=== PATIENT | male | born 1945 | race Caucasian/White ===

== ENCOUNTER 2017-05-08 10:47 | Emergency (ER) | payer OTHER ==
[2017-05-08 10:53] VITALS: BMI 21.4
--- NOTE | 2017-05-08 11:00 | PDOC ---
History of Present Illness - General Chief Complaint: Pain Stated Complaint: ABD PAIN Time Seen by Provider: 05/08/17 10:53 History Source: Patient - History of Present Illness Timing/Duration: reports: getting worse Quality: reports: moderate Abdominal Pain Onset Location: reports: LLQ Pain Radiation: reports: no radiation Past History - Past Medical History Allergies/Adverse Reactions: Allergies Allergy/AdvReac Type Severity Reaction Status Date / Time No Known Allergies Allergy Verified 05/08/17 10:51 Home Medications: Ambulatory Orders Aspirin [ASA -] 81 mg PO DAILY 01/15/16 Calcium Carbonate [Tums] 200 mg PO DAILY 01/15/16 Multivitamin [Zoo Chews] 1 each PO DAILY 01/15/16 [place]-3S/Dha/Epa/Fish Oil [Fish Oil 1,200 mg Softgel] 1 each PO DAILY 01/15/16 Ciprofloxacin HCl [Cipro] 500 mg PO BID #14 tablet 05/08/17 Metronidazole 500 mg PO Q8H #21 tablet 05/08/17 Tramadol HCl 50 mg PO Q6H #15 tablet MDD 200mg 05/08/17 Anemia: No Asthma: No Cancer: Yes (Prostate) Cardiac Disorders: No CVA: No COPD: No CHF: No Dementia: No Diabetes: No GI Disorders: Yes (REFLUX) Disorders: No HTN: No Hypercholesterolemia: No Liver Disease: No Seizures: No Thyroid Disease: No - Surgical History Abdominal Surgery: No Appendectomy: No Cardiac Surgery: No Cholecystectomy: Yes Lung Surgery: No Neurologic Surgery: No Orthopedic Surgery: No - Psycho/Social/Smoking Cessation Hx Anxiety: No Suicidal Ideation: No Smoking Status: No Smoking History: Never smoked Have you smoked in the past 12 months: No Number of Cigarettes Smoked Daily: 0 Hx Alcohol Use: No Drug/Substance Use Hx: No Substance Use Type: None Hx Substance Use Treatment: No Review of Systems - Review of Systems Constitutional: No: Chills, Fever ABD/GI: Yes: Abdominal cramping. No: Diarrhea, Nausea, Vomiting : No: Dysuria *Physical Exam - Vital Signs Last Vital Signs Temp Pulse Resp BP Pulse Ox 97.9 F 89 18 127/74 98 05/08/17 10:49 05/08/17 10:49 05/08/17 10:49 05/08/17 10:49 05/08/17 10:49 - Physical Exam General Appearance: Yes: Appropriately Dressed, Apparent Distress HEENT: positive: Normal Voice Neck: positive: Supple Respiratory/Chest: negative: Respiratory Distress Gastrointestinal/Abdominal: positive: Normal Bowel Sounds, Tender (to LLQ), Soft. negative: Distended, Guarding Musculoskeletal: negative: CVA Tenderness Integumentary: positive: Dry, Warm Neurologic: positive: Fully Oriented, Alert, Normal Mood/Affect ED Treatment Course - LABORATORY CBC & Chemistry Diagram: 05/08/17 11:20 05/08/17 11:20 Medical Decision Making - Medical Decision Making 71 yo M, GERD, s/p antoine, prostate ca remotely s/o chemo, here w/ LLQ pain that started 1 week ago. States pain resolved after first few days but reoccurred 3 days ago and now worse. Also reported constipation that has since resolved with one dose of milk of magnesia. Patient denies nausea, vomiting, fever, chills, bright red blood per rectum or melena. No history of similar pain in the past. Does not feel like his GERD as per patient See exam R/o diverticulitis -pain control -labs -CT 05/08/17 14:15 CT w/ diverticulitis to mid and distal descending colon w/ prominent diverticulum vs extraluminal air pocket and cannot r/o small phlegmon, however no obvious collection/abscess. Wbc of 15. Will admit for IV abx 05/08/17 14:42 05/08/17 15:36 05/08/17 16:39 Patient seen by hospitalist team, who states patient well enough to go home. Patient asymptomatic at this time with no nausea, vomiting or fever and able to tolerate po. Will dc with trial of abx po antibiotics with strict return precautions. *DC/Admit/Observation/Transfer Diagnosis at time of Disposition: Diverticulitis Qualifiers: Diverticulitis site: large intestine Diverticulitis bleeding: without bleeding Diverticulitis complication: unspecified complication status Qualified Code(s): K57.32 - Diverticulitis of large intestine without perforation or abscess without bleeding - Discharge Dispostion Disposition: HOME Condition at time of disposition: Improved - Prescriptions Prescriptions: Ciprofloxacin HCl [Cipro] 500 mg PO BID #14 tablet Metronidazole 500 mg PO Q8H #21 tablet Tramadol HCl 50 mg PO Q6H #15 tablet MDD 200mg - Referrals Referrals: Shiraz Blank MD [Staff Physician] - - Patient Instructions Printed Discharge Instructions: Diverticulitis Additional Instructions: You have an infection in your colon called diverticulitis. Please take antibiotics as prescribed and return to ED immediately for worsening of symptoms. Please follow-up with Dr. Lopez in 1 week
[2017-05-08 11:33] LABS: BASOPHIL 0.5 % (0-2.0); EOSINOPHIL 0.7 % (0-4.5); MCH 32.4 pg (25.7-33.7); MCHC 33.9 g/dl (32.0-35.9); MEAN CELL VOLUME 95.5 fl (80-96); MEAN PLT VOLUME 9.1 fl (7.5-11.1); NEUTROPHILS 75.9 % (42.8-82.8); PLATELET COUNT 170 K/MM3 (134-434); RDW 13.4 % (11.9-15.9)
[2017-05-08 11:38] LABS: URINE APPEARANCE CLEAR; URINE BILIRUBIN NEGATIVE (NEGATIVE); URINE BLOOD NEGATIVE (NEGATIVE); URINE COLOR LTYELLOW; URINE GLUCOSE (UA) NEGATIVE (NEGATIVE); URINE KETONE NEGATIVE (NEGATIVE); URINE LEUK ESTERASE NEGATIVE (NEGATIVE); URINE NITRITE NEGATIVE (NEGATIVE); URINE PROTEIN NEGATIVE (NEGATIVE); URINE UROBILINOGEN NEGATIVE mg/dL (0.2-1.0)
[2017-05-08 11:51] LABS: ANION GAP 8 (8-16); BILIRUBIN,TOTAL 1.2 mg/dL (0.2-1.0); CALCIUM 9.6 mg/dL (8.5-10.1); CO2 30 mmol/L (21-32); CREATININE 1.1 mg/dL (0.7-1.3); GLUCOSE,RANDOM 86 mg/dL (74-106); SGOT/AST 19 U/L (15-37); SGPT/ALT 27 U/L (12-78); TOT PROT 7.6 g/dl (6.4-8.2)
[2017-05-08 11:52] LABS: ALK PHOS 108 U/L (45-117)
[2017-05-08] MEDS ORDERED: METRONIDAZOLE 500 MG PREMIXED 100 ML IVPB ONE ×2 (14:15→14:18)
[2017-05-08] MEDS ORDERED: CIPROFLOXACIN 400 MG/D5W 200 ML IVPB ONE (14:15)
--- NOTE | 2017-05-08 16:53 | HOSP ---
Subjective - Review of Symptoms General: No: Chills HEENT: No: Head Aches, Visual Changes Pulmonary: No: Dyspnea, Cough Cardiovascular: No: Chest Pain, Palpitations, Orthopnea Gastrointestinal: Yes: Abdominal Pain (2-3/10 LLQ) Genitourinary: No: Dysuria, Frequency Musculoskeletal: Yes: No Symptoms Physical Examination Vital Signs: Vital Signs Temperature 97.9 F 05/08/17 10:49 Pulse Rate 99 H 05/08/17 14:49 Respiratory Rate 18 05/08/17 10:49 Blood Pressure 121/72 05/08/17 14:49 O2 Sat by Pulse Oximetry (%) 95 05/08/17 14:49 Constitutional: Yes: Well Nourished, No Distress Eyes: Yes: WNL HENT: Yes: WNL Neck: Yes: WNL Cardiovascular: Yes: Regular Rate and Rhythm. No: Gallop, Murmur, Rub Respiratory: Yes: Regular, CTA Bilaterally. No: Accessory Muscle Use Gastrointestinal: Yes: Normal Bowel Sounds, Soft, Tenderness (Left lower quadrant). No: Distention, Hepatomegaly ...Rectal Exam: Yes: Deferred Renal/: No: CVA Tenderness - Left, CVA Tenderness - Right Musculoskeletal: Yes: WNL Edema: No Peripheral Pulses: Left Radial: 2+, Right Radial: 2+, Left Doralis Pedis: 2+, Right Dorsalis Pedis: 2+ Integumentary: Yes: WNL Neurological: Yes: Alert, Oriented, Cran Nerves II-XII Intact ...Motor Strength: WNL Labs: CBC, BMP 05/08/17 11:20 05/08/17 11:20 Hospitalist Encounter Assessment: A: 71 yo man with PMH prostate CA s/p XRT '09 and diverticulitis presents with LLQ pain with CT evidence of acute diverticulitis. No abscess or collection present. Discussion regarding need for PMD f/u for re-evaluation and colonoscopy had. Pt verbalized understanding. P: #Diverticulitis - PO Flagyl and Cipro - d/c home with PMD referral
[2017-05-08 17:06] VITALS: BP 125/80; PULSE 90; TEMP 98
== END 2017-05-08 17:06 | disposition home or self-care (01) ==
LOC: JER 10:47
DX: K57.32 Diverticulitis of large intestine without perforation or abscess without bleeding (principal); Z85.46 Personal history of malignant neoplasm of prostate; K21.9 Gastro-esophageal reflux disease without esophagitis
CPT/HCPCS: 36415; 74177-TC; 80053; 81003; 85025; 96365; 96368; 99283-25; Q9967

== ENCOUNTER 2017-11-13 19:01 | Observation (INO) | payer OTHER ==
--- NOTE | 2017-11-13 19:26 | PDOC ---
Rapid Medical Evaluation Chief Complaint: Chest Pain Time Seen by Provider: 11/13/17 19:22 Medical Evaluation: Allergies Allergy/AdvReac Type Severity Reaction Status Date / Time No Known Allergies Allergy Verified 05/08/17 10:51 11/13/17 19:22 Palpitations on and off s afternoon. Now resolved. Was concerned as they re- occured and spont resolved States has progressive weakness and dizziness. I have performed a brief in-person evaluation of this patient. The patient presents with a chief complaint of: Palpitations on and off s afternoon. Now resolved. Was concerned as they re-occured and spont resolved States has progressive weakness and dizziness. Pertinent physical exam findings: well, non diaphoretic, I have ordered the following: EKG, The patient will proceed to the ED for further evaluation 11/13/17 19:26 11/13/17 19:27
[2017-11-13 19:40] VITALS: BMI 21.4
--- NOTE | 2017-11-13 20:16 | PDOC ---
History of Present Illness - General Chief Complaint: Chest Pain Stated Complaint: PALPITATIONS Time Seen by Provider: 11/13/17 19:22 - History of Present Illness Initial Comments: 11/13/17 20:17 72 yo M with h/o prostate cancer who presents with chest discomfort. Patient states that at 3 pm he experienced vague chest discomfort and jitteriness at rest. States that chest discomfort similar to "drinking too much coffee." Denies chest pressure, jaw pain, radiation to ext, neck pain, sensory disturbances. One cup of coffee this AM. Chest discomfort now resolved after 5 hours. No identifiable triggers or alleviators. Denies N/V, F/C, SOB, Rahman, palpitations, Cough, urinary complaints, abdominal pain, lightheadedness, LOC. Denies h/o CAD/TN, stent placement, or CABG. Tobacco cessation at age 18. Denies alcohol or illicit drug use. States that he has MRI brain scheduled tomorrow indicated for progressive generalized weakness and memory deficits that began this past summer 2016. Daily ASA 162 mg. Denies anticoagulation. Past History - Past Medical History Allergies/Adverse Reactions: Allergies Allergy/AdvReac Type Severity Reaction Status Date / Time No Known Allergies Allergy Verified 11/13/17 19:28 Home Medications: Ambulatory Orders Aspirin [ASA -] 81 mg PO DAILY 01/15/16 Calcium Carbonate [Tums] 200 mg PO DAILY 01/15/16 Multivitamin [Zoo Chews] 1 each PO DAILY 01/15/16 [place]-3S/Dha/Epa/Fish Oil [Fish Oil 1,200 mg Softgel] 1 each PO DAILY 01/15/16 Ciprofloxacin HCl [Cipro] 500 mg PO BID #14 tablet 05/08/17 Metronidazole 500 mg PO Q8H #21 tablet 05/08/17 Tramadol HCl 50 mg PO Q6H #15 tablet MDD 200mg 05/08/17 Anemia: No Asthma: No Cancer: Yes (Prostate) Cardiac Disorders: No CVA: No COPD: No CHF: No Dementia: No Diabetes: No GI Disorders: Yes (REFLUX) Disorders: No HTN: No Hypercholesterolemia: No Liver Disease: No Seizures: No Thyroid Disease: No - Surgical History Abdominal Surgery: No Appendectomy: No Cardiac Surgery: No Cholecystectomy: Yes Lung Surgery: No Neurologic Surgery: No Orthopedic Surgery: No - Suicide/Smoking/Psychosocial Hx Smoking Status: No Smoking History: Unknown if ever smoked Have you smoked in the past 12 months: No Number of Cigarettes Smoked Daily: 0 Hx Alcohol Use: No Drug/Substance Use Hx: No Substance Use Type: None Hx Substance Use Treatment: No Review of Systems - Review of Systems Comments:: 11/13/17 20:16 GENERAL/CONSTITUTIONAL: + Fatigue and Weakness. No fever or chills. HEAD, EYES, EARS, NOSE AND THROAT: No change in vision. No ear pain or discharge. No sore throat.- CARDIOVASCULAR:+ chest discomfort. No shortness of breath RESPIRATORY: No cough, wheezing, or hemoptysis. GASTROINTESTINAL: No nausea, vomiting, diarrhea or constipation. GENITOURINARY: No dysuria, frequency, or change in urination. MUSCULOSKELETAL: No joint or muscle swelling or pain. No neck or back pain. SKIN: No rash NEUROLOGIC: No headache, vertigo, loss of consciousness, or change in strength/ sensation. ENDOCRINE: No increased thirst. No abnormal weight change HEMATOLOGIC/LYMPHATIC: No anemia, easy bleeding, or history of blood clots. ALLERGIC/IMMUNOLOGIC: No hives or skin allergy. *Physical Exam - Vital Signs Last Vital Signs Temp Pulse Resp BP Pulse Ox 98.8 F 93 H 16 128/73 99 11/13/17 19:20 11/13/17 19:20 11/13/17 19:20 11/13/17 19:20 11/13/17 19:20 - Physical Exam Comments: 11/13/17 20:16 GENERAL: Awake, alert, and fully oriented, in no acute distress HEAD: No signs of trauma, normocephalic, atraumatic EYES: PERRLA, EOMI, sclera anicteric, conjunctiva clear ENT: Hearing grossly normal, nares patent, oropharynx clear without exudates. Moist mucosa NECK: Normal ROM, supple, no lymphadenopathy, JVD, or masses LUNGS: No distress, speaks full sentences, clear to auscultation bilaterally HEART: Regular rate and rhythm, normal S1 and S2, no murmurs, rubs or gallops, peripheral pulses normal and equal bilaterally. EXTREMITIES : Normal inspection, Normal range of motion, no edema. No clubbing or cyanosis. NEUROLOGICAL: Cranial nerves II through XII grossly intact. Normal speech, normal gait, no focal sensorimotor deficits SKIN: Warm, Dry, normal turgor, no rashes or lesions noted. 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 complaints or identifiable triggers or alleviators. Denies chest pressure, jaw pain, radiation to ext, neck pain, sensory disturbances, N/V, F/C, SOB, Rahmna, Palpitations, Cough, urinary complaints, abdominal pain, lightheadedness, LOC. Denies h/o CAD/TN, stent placement, or CABG. Tobacco cessation at age 18. Denies alcohol or illicit drug use. MRI brain scheduled tomorrow indicated for progressive generalized weakness and memory deficits that began this past summer 2016. Daily ASA 162 mg. Denies anticoagulation. Physical exam unremarkable and patient hemodynamically stable. Will workup pt. for ACS/TN r/ o. Will also consider hyperthyroidism with pt. constellation of symptoms and mild tachycardia. Absent pulmonary findings or complaints. Low suspicion of PNA. DDx: Anxiety related disorder, GERD, ACS/TN, hypothyroidism ED Course: CBC, CMP, Trop, TSH, Cardiac Profile, UA EKG, CXR 11/13/17 20:50 EKG: NSR with absent PARI/STD, or TWI. Normal interval duration. 11/13/17 23:23 CBC, CMP: Unremarkable Trop: Neg UA: Neg TSH : 0.01 T4, T3 11/13/17 23:47 ED OBS SHORT STAY 11/14/17 03:19 T4- 1.79 Patient stable and ready for discharge. Repeat trop pending. If trop negative. Can discharge with routine f/u. *DC/Admit/Observation/Transfer Diagnosis at time of Disposition: Atypical chest pain - Discharge Dispostion Condition at time of disposition: Stable Admit: No - Referrals - Patient Instructions - Post Discharge Activity - Attestations Physician Attestion: 11/13/17 23:24 I attest to the documentation provided in this note.
--- NOTE | 2017-11-13 20:20 | PDOC ---
Attending Attestation - Resident Resident Name: Davion Sandersonson - ED Attending Attestation I have performed the following: I have examined & evaluated the patient, The case was reviewed & discussed with the resident, I agree w/resident's findings & plan - HPI HPI: 11/13/17 22:27 Pt comes with atypical CP - Physicial Exam PE: 11/13/17 22:27 Agree with resident exam - Medical Decision Making 11/13/17 22:27 EKG: NSR Labs pending Exam normal Vitals normal 11/14/17 06:24 TSH is low and Free T4 is elevated. Pt is hyperthyroid, which is likely the cause of the jiteriness that he is feeling. Pt was admitted to ER Observation short stay and he will be followed by the hospitalists.
[2017-11-13 22:18] LABS: BASO % 0.5 % (0-2.0); EOS % 2.4 % (0-4.5); HEMATOCRIT 38.7 % (35.4-49); HEMOGLOBIN 13.4 GM/dL (11.7-16.9); LYMPH % 36.7 % (8-40); MCH 31.6 pg (25.7-33.7); MCHC 34.6 g/dl (32.0-35.9); MEAN CELL VOLUME 91.3 fl (80-96); MEAN PLT VOLUME 8.7 fl (7.5-11.1); MONO % 10.2 % (3.8-10.2); NEUT % 50.2 % (42.8-82.8); PLATELET COUNT 181 K/MM3 (134-434); RBC 4.24 M/mm3 (4.00-5.60); RDW 13.6 % (11.9-15.9)
[2017-11-13 22:43] LABS: INR 1.05 (0.82-1.09); PROTHROMBIN TIME (PATIENT) 11.9 SEC (9.98-11.88)
[2017-11-13 22:47] LABS: ALBUMIN 3.7 g/dl (3.4-5.0); ANION GAP 5 (8-16); BILIRUBIN,TOTAL 0.4 mg/dL (0.2-1.0); BLOOD UREA NITROGEN 12 mg/dL (7-18); CALCIUM 8.7 mg/dL (8.5-10.1); CHLORIDE 103 mmol/L (98-107); CO2 32 mmol/L (21-32); CREATININE 0.7 mg/dL (0.7-1.3); GLUCOSE,RANDOM 92 mg/dL (74-106); SGOT/AST 14 U/L (15-37); SGPT/ALT 28 U/L (12-78); SODIUM 140 mmol/L (136-145); TOT PROT 6.9 g/dl (6.4-8.2)
[2017-11-13 22:48] LABS: ALK PHOS 94 U/L (45-117)
[2017-11-13 23:26] LABS: URINE APPEARANCE CLEAR; URINE BILIRUBIN NEGATIVE (NEGATIVE); URINE BLOOD NEGATIVE (NEGATIVE); URINE COLOR LTYELLOW; URINE GLUCOSE (UA) NEGATIVE (NEGATIVE); URINE KETONE NEGATIVE (NEGATIVE); URINE LEUK ESTERASE NEGATIVE (NEGATIVE); URINE NITRITE NEGATIVE (NEGATIVE); URINE PROTEIN NEGATIVE (NEGATIVE); URINE UROBILINOGEN NEGATIVE mg/dL (0.2-1.0)
[2017-11-14 01:54] VITALS: PULSE 98
[2017-11-14 06:18] VITALS: BP 130/65; TEMP 97.7
--- NOTE | 2017-11-14 12:11 | EKG ---
Test Reason : Blood Pressure : / mmHG Vent. Rate : 085 BPM Atrial Rate : 085 BPM P-R Int : 160 ms QRS Dur : 088 ms QT Int : 344 ms P-R-T Axes : 071 -16 059 degrees QTc Int : 409 ms NORMAL SINUS RHYTHM NORMAL ECG WHEN COMPARED WITH ECG OF 15-JAN-2016 18:21, QRS AXIS SHIFTED RIGHT Confirmed by MD CONCHIS, CHELSI ([id number]) on 11/14/2017 12:10:46 PM Referred By: Confirmed By:CHELSI BALDERRAMA MD
== END 2017-11-14 08:33 | disposition home or self-care (01) ==
LOC: JER 19:01 → JERBED 23:44
PROVIDERS: ADMIT Internal Medicine; ATTEND Internal Medicine
DX: R07.89 Other chest pain (principal); Z85.46 Personal history of malignant neoplasm of prostate; Z79.82 Long term (current) use of aspirin
CPT/HCPCS: 36415; 71045-TC; 80053; 81003; 82550; 84436; 84439; 84443; 84480; 84484; 85025; 85610; 87804; 93005; 93010; 99282-25; G0378

== ENCOUNTER 2019-10-28 07:46 | Emergency (ER) | payer OTHER ==
[2019-10-28 07:53] VITALS: TEMP 97.7; BMI 22.1
--- NOTE | 2019-10-28 08:49 | PDOC ---
History of Present Illness - General Chief Complaint: Palpitations Stated Complaint: CHEST TIGHTNESS,RAPID HEARTBEAT Time Seen by Provider: 10/28/19 07:56 History Source: Patient Exam Limitations: No Limitations - History of Present Illness Initial Comments: 10/28/19 08:42 74y M with PMH of Grave's Disease (non compliant with medications), presenting to ED with complaints of palpitations and chest tightness that started 2 hours ago while he was doing his daily routine. Pt has not had these symptoms before. Right now he has tightness in the chest but denies palpitations. Also denies headache, syncope, changes in vision, n/v/d, abdominal pain. He was taking Methimazole but stoped taking it because he felt better. He then resumed it again. States he drinks strong coffee every morning but did not drink it today. Drinks 5 Hour Energy drink every morning. Denies history of [place], recent travel, recent surgeries. PMD: PMH: see hpi PSH: Meds: multivitamin, fish oil Allergies: nkda Past History - Past Medical History Allergies/Adverse Reactions: Allergies Allergy/AdvReac Type Severity Reaction Status Date / Time No Known Allergies Allergy Verified 05/31/18 12:27 Home Medications: Ambulatory Orders Aspirin [ASA -] 81 mg PO DAILY 01/15/16 Calcium Carbonate [Tums] 200 mg PO DAILY 01/15/16 Multivitamin [Zoo Chews] 1 each PO DAILY 01/15/16 [place]-3S/Dha/Epa/Fish Oil [Fish Oil 1,200 mg Softgel] 1 each PO DAILY 01/15/16 Methimazole [Tapazole -] 0 mg PO TID 10/28/19 Anemia: No Asthma: No Cancer: Yes (Prostate) Cardiac Disorders: No CVA: No COPD: No CHF: No Dementia: No Diabetes: No GI Disorders: Yes (REFLUX) Disorders: No HTN: No Hypercholesterolemia: No Liver Disease: No Seizures: No Thyroid Disease: No - Surgical History Abdominal Surgery: No Appendectomy: No Cardiac Surgery: No Cholecystectomy: Yes Lung Surgery: No Neurologic Surgery: No Orthopedic Surgery: No - Immunization History Immunization Up to Date: No - Psycho Social/Smoking Cessation Hx Smoking Status: No Smoking History: Never smoked Have you smoked in the past 12 months: No Number of Cigarettes Smoked Daily: 0 Information on smoking cessation initiated: No Hx Alcohol Use: Yes Drug/Substance Use Hx: No Substance Use Type: None Hx Substance Use Treatment: No *Physical Exam - Vital Signs Last Vital Signs Temp Pulse Resp BP Pulse Ox 97.7 F 107 H 16 117/68 96 10/28/19 07:51 10/28/19 07:51 10/28/19 07:51 10/28/19 07:51 10/28/19 07:51 ED Treatment Course - LABORATORY CBC & Chemistry Diagram: 10/28/19 08:26 10/28/19 08:34 - RADIOLOGY Radiology Studies Ordered: Category Date Time Status CHEST X-RAY PORTABLE* [RAD] Stat Radiology 10/28/19 08:41 Ordered Medical Decision Making - Medical Decision Making 10/28/19 12:46 74y M Discharge - Discharge Information Problems reviewed: Yes Clinical Impression/Diagnosis: Palpitations Condition: Good Disposition: HOME - Follow up/Referral Referrals: ON STAFF,NOT [Primary Care Provider] - - Patient Discharge Instructions Patient Printed Discharge Instructions: DI for Palpitations Additional Instructions: You were seen in the emergency room today for palpitations. The blood work is normal and the EKG is normal. Please take your medications as prescribed, do not stop medications unless directed by your doctor. I recommend making an appointment with your doctor next week regarding this ED visit. Please come back to the emergency room if you have continuous palpitations, have chest pain or if any new or concerning symptom develops. Thank you - Post Discharge Activity Work/Back to School Note: Back to Work
[2019-10-28 09:06] LABS: BASO % 0.7 % (0-2.0); HEMATOCRIT 42.3 % (35.4-49); HEMOGLOBIN 14.8 GM/dL (11.7-16.9); LYMPH % 28.5 % (8-40); MCH 32.8 pg (25.7-33.7); MCHC 34.9 g/dl (32.0-35.9); MEAN CELL VOLUME 94.1 fl (80-96); MEAN PLT VOLUME 8.9 fl (7.5-11.1); MONO % 8.6 % (3.8-10.2); NEUT % 59.2 % (42.8-82.8); PLATELET COUNT 176 K/MM3 (134-434); RDW 12.9 % (11.9-15.9)
[2019-10-28 09:36] LABS: ALBUMIN 3.8 g/dl (3.4-5.0); BILIRUBIN,TOTAL 0.4 mg/dL (0.2-1); BLOOD UREA NITROGEN 9.8 mg/dL (7-18); CALCIUM 9.4 mg/dL (8.5-10.1); POTASSIUM 4.6 mmol/L (3.5-5.1); TOT PROT 7.1 g/dl (6.4-8.2)
[2019-10-28 09:51] LABS: INR 1.07 (0.83-1.09); PROTHROMBIN TIME (PATIENT) 12.6 SEC (9.7-13.0)
--- NOTE | 2019-10-28 10:16 | PDOC ---
Attending Attestation - Resident Resident Name: Alee Arenas - ED Attending Attestation I have performed the following: I have examined & evaluated the patient, The case was reviewed & discussed with the resident, I agree w/resident's findings & plan, Exceptions are as noted - HPI HPI: 10/28/19 10:11 Ms Mccoy is a 74 yo M who presents to the ER with a complaint of palpitations He has a h/o Grave's Disease (non compliant with medications) He presents with a complaint of palpitations and chest tightness that started 2 hours ago while he was doing his daily routine this morning. Pt has not had these symptoms before. 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 - Physicial Exam PE: 10/28/19 10:14 GENERAL: The patient is in no acute distress. ENT: Ears normal, nares patent, oropharynx clear without exudates. Moist mucous membranes. NECK: Normal range of motion, supple LUNGS: Breath sounds equal, clear to auscultation bilaterally. No wheezes, and no crackles. HEART:Regular rate and rhythm, normal S1 and S2 without murmur, rub or gallop. ABDOMEN: Soft, nontender, normoactive bowel sounds. EXTREMITIES: Normal range of motion, no edema. NEUROLOGICAL: Cranial nerves II through XII grossly intact. Normal speech. No focal neurological deficits. SKIN: Warm, Dry, normal turgor, no rashes or lesions noted. - Medical Decision Making 10/28/19 10:14 74 yo F presenting with a complaint of palpaitations and chest tightness DD: arrhythmia, acs, asthma exacerbation, pneumonia, pneumothorax, pleural effusion , costochondritis, pericarditis, GERD. EKG: Twelve-lead EKG was performed and reviewed by me. There is normal sinus rhythm with a normal rate of 92 bpm. Left axis deviation. The intervals are normal. There are no ST or T wave abnormalities. Impression: Normal twelve-lead EKG Will do : Labs EKG Continuous cardiac monitoring 10/29/19 12:23 Laboratory Tests 10/28/19 10/28/19 10/28/19 08:26 08:34 11:56 Hgb 14.8 Hct 42.3 Troponin I < 0.02 < 0.02 TSH 1.50 D No evidence of cardiac ischemia at this time Will ask pt to follow up with PMD with 2-3 business days Return to the ER for any other concerns or complaints Pt given note for court as he missed his court date today
[2019-10-28 13:03] VITALS: BP 130/84; PULSE 97
--- NOTE | 2019-10-29 09:13 | EKG ---
Test Reason : Blood Pressure : / mmHG Vent. Rate : 092 BPM Atrial Rate : 092 BPM P-R Int : 164 ms QRS Dur : 092 ms QT Int : 348 ms P-R-T Axes : 061 -38 062 degrees QTc Int : 430 ms NORMAL SINUS RHYTHM LEFT AXIS DEVIATION ABNORMAL ECG WHEN COMPARED WITH ECG OF 13-NOV-2017 19:34, NO SIGNIFICANT CHANGE WAS FOUND Confirmed by CRISTOPHER KELLER MD ([id number]) on 10/29/2019 9:12:47 AM Referred By: Confirmed By:CRISTOPHER KELLER MD
== END 2019-10-28 13:09 | disposition home or self-care (01) ==
LOC: JER 07:46 → SUPCPDRO 07:46 → JER 13:09
DX: R00.2 Palpitations (principal); K21.9 Gastro-esophageal reflux disease without esophagitis
CPT/HCPCS: 36415; 71045-TC-FY; 80053; 84443; 84484; 85025; 85610; 93005; 93010; 99285-25

== ENCOUNTER 2024-03-28 21:15 | Emergency (ER) | payer OTHER ==
[2024-03-28 21:21] VITALS: BP 113/68; PULSE 106; RESP 18; TEMP 98.7; BMI 23.6
[2024-03-28] MEDS: ACETAMINOPHEN 1000 MG/100 ML BAG IVPB ONE (22:43)
[2024-03-28 22:52] LABS: BASO % 0.6 % (0-2.0); EOS % 2.3 % (0-4.5); HEMATOCRIT 43.5 % (35.4-49); LYMPH % 35.7 % (8-40); MCH 32.2 pg (25.7-33.7); MCHC 34.6 g/dl (32.0-35.9); MEAN CELL VOLUME 93.1 fl (80-96); MEAN PLT VOLUME 8.3 fl (7.5-11.1); MONO % 8.6 % (3.8-10.2); NEUT % 52.8 % (42.8-82.8); PLATELET COUNT 218 10^3/uL (134-434); RBC 4.67 M/mm3 (4.00-5.60); RDW 13.7 % (11.9-15.9); WHITE BLOOD COUNT 10.3 K/mm3 (4.0-10.0)
[2024-03-28 22:58] LABS: INR 1.01 (0.83-1.09); PROTHROMBIN TIME (PATIENT) 11.6 SEC (9.7-13.0)
[2024-03-28 23:01] LABS: ACTIVATED PTT 35.7 SECONDS (25.2-36.5)
[2024-03-28 23:11] LABS: POTASSIUM 3.7 mmol/L (3.5-5.1)
[2024-03-28 23:13] LABS: CALCIUM 9.2 mg/dL (8.5-10.1)
[2024-03-28 23:14] LABS: BLOOD UREA NITROGEN 13.9 mg/dL (7-18)
[2024-03-28 23:18] LABS: BILIRUBIN,TOTAL 0.5 mg/dL (0.2-1)
== END 2024-03-29 01:00 | disposition home or self-care (01) ==
LOC: JER 21:15
DX: E03.9 Hypothyroidism, unspecified (principal); R51.9 Headache, unspecified; R42 Dizziness and giddiness; R11.0 Nausea
CPT/HCPCS: 36415; 70450-TC; 80053; 83735; 84439; 84443; 84484; 85025; 85610; 85730; 93005; 93010; 99285-25